=== PATIENT | male | born 1975 | race African-American/Black ===

== ENCOUNTER 2021-09-05 12:17 | Outpatient (CLI) | payer SELFPAY ==
[2021-09-05 15:30] LABS: Viscosity Semen High Viscosity; Volume Semen 1.8 mL (2-5)
[2021-09-05 15:34] LABS: Red Blood Count Semen 0-4 /hpf; White Blood Count Semen 0-4 /hpf
[2021-09-05 15:38] LABS: Sperm Progressive Motility 40 % (31-34)
[2021-09-05 15:39] LABS: Sperm Immotility 50 % (50-60); Sperm Non-Progressive Motility 10 % (5-10)
[2021-09-05 15:46] LABS: PH Semen 8.5 (7.0-8.0)
[2021-09-05 15:59] LABS: Side 1 69; Side 2 65
[2021-09-05 16:06] LABS: Pathology Referral Yes
== END 2021-09-05 12:18 | disposition home or self-care (01) ==
PROVIDERS: Visit Provider Obstetrics & Gynecology
DX: N46.9 Male infertility, unspecified (principal)
CPT/HCPCS: 80503; 89320